=== PATIENT | male | born 1950 | race Caucasian/White ===

== ENCOUNTER 2018-09-12 22:50 | Emergency (ER) | payer BC ==
[2018-09-12] MEDS ORDERED: ONDANSETRON 4 MG/2 ML VIAL IVP STA (23:50)
[2018-09-12] MEDS ORDERED: SODIUM CHLORIDE 0.9% 1,000 ML IV STA (23:50)
[2018-09-12] MEDS ORDERED: KETOROLAC 30 MG/ML 1 ML VIAL IVP STA (23:50)
[2018-09-12] MEDS ORDERED: HYDROmorphone 0.5 MG/0.5 ML SYRINGE IVP STA (23:50)
[2018-09-13 00:20] LABS: HCT 48.2 % (39.0-53.0); HGB 15.8 gm/dL (13.0-17.5); RBC 5.32 m/uL (4.30-5.90); WBC 11.8 k/uL (3.8-10.6)
[2018-09-13 00:21] LABS: Appearance,Urine Clear (Clear); Basophils % (A) 0 %; Bilirubin,Urine Negative (Negative); Blood,Urine Negative (Negative); Color,Urine Yellow; Eosinophils # (A) 0.2 k/uL (0-0.7); Eosinophils % (A) 1 %; Glucose,Urine (UA) Negative (Negative); Ketones,Urine Negative (Negative); Leukocyte Esterase,Urine Negative (Negative); Lymphocytes # (A) 0.9 k/uL (1.0-4.8); Lymphocytes % (A) 8 %; MCH 29.8 pg (25.0-35.0); MCHC 32.8 g/dL (31.0-37.0); MCV 90.6 fL (80.0-100.0); Mean Platelet Volume 6.2; Monocytes # (A) 0.7 k/uL (0-1.0); Monocytes % (A) 6 %; Neutrophils # (A) 9.9 k/uL (1.3-7.7); Neutrophils % (A) 84 %; Nitrite,Urine Negative (Negative); Platelet Count 238 k/uL (150-450); Protein,Urine Negative (Negative); RDW 13.1 % (11.5-15.5); Specific Gravity,Urine 1.012 (1.001-1.035); Urobilinogen,Urine <2.0 mg/dL (<2.0)
--- NOTE | 2018-09-13 00:28 | ED ---
Abdominal Pain HPI - General Chief Complaint: Abdominal Pain Stated Complaint: LLQ Pain Urinary Retention Online Check In Time Seen by Provider: 09/12/18 23:40 Source: patient Mode of arrival: ambulatory Limitations: no limitations - History of Present Illness Initial Comments: 68-year-old male patient presents to the emergency department today for evaluation of left lower quadrant pain that radiates to the left back down into the left groin. Patient states this started around 3-4 hours ago. Patient states the pain is sharp and stabbing in nature. States that he has had chills with this but no fever. Denies any nausea, vomiting, constipation, or diarrhea. Patient states he has felt the urge to urinate but has only urinated a small amount. States throughout the day he is eating and drinking without difficulty. States that he did have a similar type episode about a month ago that resolved rather quickly after having a bowel movement. Denies any history of abdominal surgery. Patient denies any recent rash, shortness breath, cough, chest pain, back pain, numbness, tingling, dizziness, weakness, hematuria, dysuria, headache, visual changes, or any other complaints. - Related Data Home Medications Medication Instructions Recorded Confirmed Esomeprazole Magnesium [NexIUM] 40 mg PO DAILY PRN 09/12/18 09/12/18 Previous Rx's Medication Instructions Recorded Hydrocodone/Acetaminophen [[place] 1 tab PO Q6HR PRN #12 tab 09/13/18 5-325] Ibuprofen [Motrin] 600 mg PO Q8HR PRN #30 tab 09/13/18 Ondansetron [Zofran ODT] 4 mg PO Q8HR PRN #10 tab 09/13/18 Tamsulosin HCl [Flomax] 0.4 mg PO DAILY #7 cap 09/13/18 Allergies Allergy/AdvReac Type Severity Reaction Status Date / Time aspirin AdvReac Severe Nausea & Verified 09/12/18 23:15 Vomiting Review of Systems ROS Statement: Those systems with pertinent positive or pertinent negative responses have been documented in the HPI. ROS Other: All systems not noted in ROS Statement are negative. Past Medical History Past Medical History: No Reported History History of Any Multi-Drug Resistant Organisms: None Reported Additional Past Surgical History / Comment(s): back surgery, skin CA removed. Past Psychological History: No Psychological Hx Reported Smoking Status: Never smoker Past Alcohol Use History: Occasional Past Drug Use History: None Reported General Exam Limitations: no limitations General appearance: alert, in no apparent distress, other (Physical well- developed, well-nourished adult male patient in no acute distress. Vital signs upon presentation are temperature 97.5F, pulse 77, respirations 16, blood pressure 130/78, pulse ox 98% on room air.) Eye exam: Present: normal appearance, PERRL, EOMI. Absent: scleral icterus, conjunctival injection, periorbital swelling ENT exam: Present: normal exam, normal oropharynx, mucous membranes moist Respiratory exam: Present: normal lung sounds bilaterally. Absent: respiratory distress, wheezes, rales, rhonchi, stridor Cardiovascular Exam: Present: regular rate, normal rhythm, normal heart sounds. Absent: systolic murmur, diastolic murmur, rubs, gallop, clicks GI/Abdominal exam: Present: soft, tenderness (Left lower quadrant, left upper quadrant tenderness), normal bowel sounds. Absent: distended, guarding, rebound , rigid Back exam: Present: normal inspection, CVA tenderness (L) (Mild). Absent: CVA tenderness (R) Neurological exam: Present: alert, oriented X3, CN II-XII intact Psychiatric exam: Present: normal affect, normal mood Skin exam: Present: warm, dry, intact, normal color. Absent: rash Course Vital Signs 09/12/18 09/13/18 09/13/18 22:59 00:55 01:51 Temperature 97.5 F L Pulse Rate 77 66 79 Respiratory 16 18 20 Rate Blood Pressure 130/78 124/72 126/50 O2 Sat by Pulse 98 95 97 Oximetry Medical Decision Making - Medical Decision Making 68 year-old male patient presents to the emergency department today for evaluation of left lower quadrant abdominal pain radiating through to the back. Physical examination did reveal left lower quadrant and left upper quadrant abdominal tenderness. Labs reviewed and did reveal mildly elevated white blood cell count 11.6, normal urinalysis. Did obtain CT abdomen and pelvis with contrast, this did show 2 obstructing stones to the left ureter with hydronephrosis and hydroureter. No evidence for acute kidney injury, no evidence of infection. Patient was treated with IV fluids, pain medication here in the department. We did start Flomax. He'll be discharged home with pain and nausea management as well as Flomax. Is instructed to follow-up with urologist for further evaluation as soon as possible. Return parameters were discussed in detail. He verbalizes understanding and agrees with this plan. - Lab Data Result diagrams: 09/13/18 00:05 09/13/18 00:05 Lab Results 09/13/18 09/13/18 09/13/18 Range/Units 00:05 00:05 00:05 WBC 11.8 H (3.8-10.6) k/uL RBC 5.32 (4.30-5.90) m/uL Hgb 15.8 (13.0-17.5) gm/dL Hct 48.2 (39.0-53.0) % MCV 90.6 (80.0-100.0) fL MCH 29.8 (25.0-35.0) pg MCHC 32.8 (31.0-37.0) g/dL RDW 13.1 (11.5-15.5) % Plt Count 238 (150-450) k/uL Neutrophils % 84 % Lymphocytes % 8 % Monocytes % 6 % Eosinophils % 1 % Basophils % 0 % Neutrophils # 9.9 H (1.3-7.7) k/uL Lymphocytes # 0.9 L (1.0-4.8) k/uL Monocytes # 0.7 (0-1.0) k/uL Eosinophils # 0.2 (0-0.7) k/uL Basophils # 0.0 (0-0.2) k/uL Sodium 142 (137-145) mmol/L Potassium 4.0 (3.5-5.1) mmol/L Chloride 108 H (98-107) mmol/L Carbon Dioxide 25 (22-30) mmol/L Anion Gap 9 mmol/L BUN 20 (9-20) mg/dL Creatinine 1.14 (0.66-1.25) mg/dL Est GFR (CKD-EPI)AfAm 78 (>60 ml/min/1.73 sqM) Est GFR (CKD-EPI)NonAf 67 (>60 ml/min/1.73 sqM) Glucose 110 H (74-99) mg/dL Calcium 10.1 (8.4-10.2) mg/dL Total Bilirubin 2.7 H (0.2-1.3) mg/dL AST 18 (17-59) U/L ALT 26 (21-72) U/L Alkaline Phosphatase 77 (38-126) U/L Total Protein 7.3 (6.3-8.2) g/dL Albumin 4.3 (3.5-5.0) g/dL Amylase 93 (30-110) U/L Lipase 170 (23-300) U/L Urine Color Yellow Urine Appearance Clear (Clear) Urine pH 5.0 (5.0-8.0) Ur Specific [place] 1.012 (1.001-1.035) Urine Protein Negative (Negative) Urine Glucose (UA) Negative (Negative) Urine Ketones Negative (Negative) Urine Blood Negative (Negative) Urine Nitrite Negative (Negative) Urine Bilirubin Negative (Negative) Urine Urobilinogen <2.0 (<2.0) mg/dL Ur Leukocyte Esterase Negative (Negative) - Radiology Data Radiology results: report reviewed, image reviewed Computed tomography scan abdomen and pelvis with contrast was obtained. Report was reviewed in its entirety. Impression by Dr. Babb shows to obstructive distal left ureteral stones, the larger measuring 5 mm in size as above. Left hydronephrosis and hydroureter. Disposition Clinical Impression: Kidney stone on left side Disposition: HOME SELF-CARE Condition: Good Instructions (If sedation given, give patient instructions): Kidney Stones (ED) , How to Strain Your Urine (ED) Additional Instructions: Increase fluids. Take medications as directed. Follow-up with urology for further evaluation. Return to the emergency department for any new, worsening, or concerning symptoms. Prescriptions: Hydrocodone/Acetaminophen [[place] 5-325] 1 tab PO Q6HR PRN #12 tab PRN Reason: Pain Ibuprofen [Motrin] 600 mg PO Q8HR PRN #30 tab PRN Reason: Pain Ondansetron [Zofran ODT] 4 mg PO Q8HR PRN #10 tab PRN Reason: Nausea Tamsulosin HCl [Flomax] 0.4 mg PO DAILY #7 cap Is patient prescribed a controlled substance at d/c from ED?: Yes When asked, does pt state using other controlled substances?: No If prescribed controlled substance>3 days was MAPS reviewed?: Prescribed <3 Days If opioid is for acute pain is fill amount 7 days or less?: Yes If Rx opioid, was Start Talking consent form obtained?: Yes Referrals: Vinay Boswell DO [Primary Care Provider] - 1-2 days Mac Nunez MD [STAFF PHYSICIAN] - 1-2 days Time of Disposition: 01:20
[2018-09-13 00:30] LABS: Albumin 4.3 g/dL (3.5-5.0); Calcium 10.1 mg/dL (8.4-10.2); Total Bilirubin 2.7 mg/dL (0.2-1.3); Total Protein 7.3 g/dL (6.3-8.2)
--- NOTE | 2018-09-13 01:01 | CT ---
EXAM: CT Abdomen and Pelvis With Intravenous Contrast CLINICAL HISTORY: ITS.REASON CT Reason: Pain TECHNIQUE: Axial computed tomography images of the abdomen and pelvis with intravenous contrast. DLP is 686.8 mGy-cm. This CT exam was performed using one or more of the following dose reduction techniques: automated exposure control, adjustment of the mA and/or kV according to patient size, and/or use of iterative reconstruction technique. COMPARISON: No relevant prior studies available. FINDINGS: 2 obstructive distal left ureteral stones. As measured on reformatted images, the larger stone is slightly more proximal to the smaller stone which is at the UVJ. Larger stone measures about 5 mm in size craniocaudal, the smaller stone at the left UVJ measures about 3 mm in size, example image 59 and 58 coronal. Delayed left nephrogram and asymmetric infiltration around the left kidney and ureter. No excretion of contrast by the left kidney on delayed images. Left hydronephrosis and hydroureter is mild to moderate. No evidence for acute pancreatitis or other acute abnormality of the solid abdominal viscera. Peripelvic renal cysts. No bowel obstruction. Portions of bowel including colon underdistended limiting evaluation for mural thickening. Diverticulosis. No diverticulitis. Small duodenal diverticulum. No evidence for appendicitis or other acute process. Atelectasis at lung bases. Osseous degenerative changes. IMPRESSION: 2 obstructive distal left ureteral stones, the larger measuring 5 mm in size, as above.
[2018-09-13] MEDS ORDERED: HYDROmorphone 1 MG/ML 1 ML SYRINGE IVP STA (01:17)
[2018-09-13] MEDS ORDERED: TAMSULOSIN 0.4 MG CAP.ER.24H PO STA (01:17)
[2018-09-13] MEDS ORDERED: ACET/COD 300 MG/30 MG STARTER PACK 6 TAB BTL PO STA (01:18)
[2018-09-13] MEDS ORDERED: IBUPROFEN 600 MG STARTER PACK 4 TAB BTL PO STA (01:18)
[2018-09-13 01:52] VITALS: RESP 20
[2018-09-13 02:01] VITALS: BP 119/67; PULSE 59; TEMP 97.8
== END 2018-09-13 02:01 | disposition home or self-care (01) ==
LOC: EC 22:50
DX: N13.2 Hydronephrosis with renal and ureteral calculous obstruction (principal); Z88.6 Allergy status to analgesic agent
CPT/HCPCS: 36415; 80053; 82150; 83690; 85025; 81003; 74177; 99284; 96374; 96375 ×2; 96376; 96361 ×2; J2405; J1885; J1170 ×2; Q9967